=== PATIENT | male | born 1960 | race Caucasian/White ===

== ENCOUNTER 2020-06-06 09:27 | Outpatient (CLI) | payer BC, OTHER ==
--- NOTE | 2020-06-06 10:24 | XRAY Report ---
PROCEDURE: Lumbar Spine 2 View INDICATIONS: LOW BACK PAIN TECHNIQUE: 3 views of the lumbar spine were acquired. COMPARISON: None. FINDINGS: Bones: 5 [id number] vertebrae are present. There is minimal retrolisthesis of L2 on L3. Degene rative endplate changes and bilateral facet arthrosis throughout lumbar spine is seen more prominent at L4-5 level.. No vertebral body compression fractures. No suspicious bony lesions. Soft tissues: Overlying bowel gas pattern is normal. No suspicious soft tissue calcifications. There is decreased range of motion of lateral flexion and extension views with preserved lumbar spine alignment. IMPRESSION: 1. Minimal retrolisthesis at L2-3 level. No acute compression fracture. 2. Decreased range of motion of lateral flexion and extension views with preserved lumbar spine align ment. 3. Degenerative disc disease throughout lumbar spine. Reviewed by: Jimmy Butcher MD on 06/06/2020 10:23 AM PDT Approved by: Jimmy Butcher MD on 06/06/2020 10:23 AM PDT Station ID: [id number]
== END 2020-06-06 09:28 | disposition home or self-care (01) ==
LOC: DI.S 09:27
PROVIDERS: ATTEND Acupuncturist
DX: M51.36 Other intervertebral disc degeneration, lumbar region (principal)